=== PATIENT | female | born 1950 ===

== ENCOUNTER → 2019-04-14 | Outpatient (CLI) | payer OTHER | END | disposition home or self-care (01) | LOC: NUCLEAR 13:00 | DX: M81.0 Age-related osteoporosis without current pathological fracture (principal) ==

== ENCOUNTER 2019-11-02 10:35 | Outpatient (CLI) | payer OTHER | END 2019-11-02 10:44 | disposition home or self-care (01) | LOC: SONOGRAMA 10:35 | DX: E04.2 Nontoxic multinodular goiter (principal) ==

== ENCOUNTER 2021-05-21 13:59 | Outpatient (CLI) | payer OTHER | END 2021-05-21 14:04 | disposition home or self-care (01) | LOC: NUCLEAR 13:59 | PROVIDERS: ATTEND Specialist | DX: M81.0 Age-related osteoporosis without current pathological fracture (principal) ==

== ENCOUNTER 2023-06-10 13:31 | Outpatient (CLI) | payer OTHER | END 2023-06-10 13:32 | disposition home or self-care (01) | LOC: NUCLEAR 13:31 | PROVIDERS: ATTEND Specialist | DX: M81.0 Age-related osteoporosis without current pathological fracture (principal) ==

== ENCOUNTER 2023-09-16 10:04 | Outpatient (CLI) | payer OTHER | END 2023-09-16 10:10 | disposition home or self-care (01) | LOC: SONOGRAMA 10:04 | PROVIDERS: ATTEND Specialist | DX: E04.2 Nontoxic multinodular goiter (principal) ==